=== PATIENT | female | born 1965 | race Caucasian/White ===

== ENCOUNTER 2016-11-07 16:27 | Emergency (ER) | payer BC ==
[2016-11-07] MEDS ORDERED: KETOROLAC TROMETHAMINE 30 MG/1 ML VIAL IVPUSH ONE (16:32)
[2016-11-07] MEDS ORDERED: KETOROLAC TROMETHAMINE 30 MG/1 ML VIAL ONE (16:35)
--- NOTE | 2016-11-07 16:36 | PDOC ---
History of Present Illness - General History Source: Patient Exam Limitations: No Limitations - History of Present Illness Initial Comments: 11/07/16 16:39 The patient is a 50 year old female with no significant past medical history who presents to the ED complaining of left ankle pain that began today. She reports she slipped straight down 1 stair step onto concrete [place] when she heard a pop at the onset of her pain. She states she was initially able to bear weight on her right lower extremity although it was painful. This afternoon, her pain became significantly worse, prompting her to come to the ED for evaluation. She states her pain is felt worst laterally, and she is unable to bear weight secondary to her pain. She also complains of nausea secondary to her pain. The patient denies any numbness or tingling in the left lower extremity. She denies any left lower extremity numbness or tingling. No other injury. <Yahaira Du - Last Filed: 11/07/16 17:03> <Poli Will - Last Filed: 11/07/16 18:08> - General Chief Complaint: Pain, Acute Stated Complaint: LEFT ANKLE PAIN Time Seen by Provider: 11/07/16 16:28 Past History <Yahaira Du - Last Filed: 11/07/16 17:03> - Past Medical History Anemia: No Asthma: No Cancer: No Cardiac Disorders: No CVA: No COPD: No CHF: No Dementia: No Diabetes: No GI Disorders: No Disorders: No HTN: No Hypercholesterolemia: No Liver Disease: No Seizures: No Thyroid Disease: No - Surgical History Abdominal Surgery: No Appendectomy: Yes Cardiac Surgery: No Cholecystectomy: No Lung Surgery: No Neurologic Surgery: No Orthopedic Surgery: No - Psycho/Social/Smoking Cessation Hx Anxiety: Yes Suicidal Ideation: No Smoking Status: No Smoking History: Never smoked Number of Cigarettes Smoked Daily: 0 Hx Alcohol Use: No Drug/Substance Use Hx: No Substance Use Type: None Hx Substance Use Treatment: No <Poli Will - Last Filed: 11/07/16 18:08> - Past Medical History Allergies/Adverse Reactions: Allergies Allergy/AdvReac Type Severity Reaction Status Date / Time latex Allergy Rash Verified 11/07/16 16:28 ondansetron HCl [From Zofran] Allergy unable to Verified 11/07/16 16:28 void Penicillins Allergy Verified 11/07/16 16:28 Home Medications: Ambulatory Orders Fluoxetine HCl [Prozac -] 60 mg PO DAILY 05/01/13 Naproxen [EC-Naprosyn] 375 mg PO BID PRN #14 tablet.ec 11/07/16 Review of Systems - Review of Systems Able to Perform ROS?: Yes Comments:: 11/07/16 16:39 CONSTITUTIONAL: Absent: Fever, Chills, Diaphoresis, Generalized Weakness, Malaise, Loss of Appetite HEENT: Absent: Rhinorrhea, Nasal Congestion, Throat Pain, Throat Swelling, Difficulty Swallowing, Mouth Swelling, Ear Pain, Eye Pain, Visual Changes CARDIOVASCULAR: Absent: Chest Pain, Syncope, Palpitations, Irregular Heart Rate, Lightheadedness , Peripheral Edema RESPIRATORY: Absent: Cough, Shortness of Breath, SOB with Exertion, Orthopnea, Wheezing, Stridor, Hemoptysis GASTROINTESTINAL: Absent: Abdominal pain, Abdominal Distension, Nausea, Vomiting, Diarrhea, Constipation, Melena, Hematochezia GENITOURINARY: Absent: Dysuria, Frequency, Urgency, Hesitancy, Flank Pain, Genital Pain MUSCULOSKELETAL: Present: L ankle pain Absent: Myalgia, Back pain, Neck Pain SKIN: Absent: Rash, Itching, PalloR HEMEATOLOGIC/IMMUNOLOGIC: Absent: Easy Bleeding, Easy Bruising, Lymphadenopathy, Frequent infections ENDOCRINE: Absent: Unexplained Weight Gain, Unexplained Weight Loss, Heat Intolerance, Cold Intolerance NEUROLOGIC: Absent: Headache, Focal Weakness, Paresthesias, Vertigo, Lightheadedness, Unsteady Gait, Seizure, Mental Status Changes, Incontinence PSYCHIATRIC: Absent: Anxiety, Depression <Yahaira Du - Last Filed: 11/07/16 17:03> *Physical Exam - Vital Signs Last Vital Signs Temp Pulse Resp BP Pulse Ox 97.9 F 62 18 119/67 100 11/07/16 16:28 11/07/16 16:28 11/07/16 16:28 11/07/16 16:28 11/07/16 16:28 - Physical Exam Comments: 11/07/16 16:40 GENERAL: The patient is awake, alert, and fully oriented, uncomfortable appearing. HEAD: Normal with no signs of trauma. EYES: Pupils equal, round and reactive to light, extraocular movements intact, sclera anicteric, conjunctiva clear. EXTREMITIES: Left lower extremity: All other extremities: No tenderness to palpation of the medial malleolus. Significant swelling and tenderness to the lateral malleolus. The foot is nontender. Sensation intact, DP intact, CR <2s. All other extremities: Normal range of motion, no edema. No clubbing or cyanosis. No cords, erythema, or tenderness. NEUROLOGICAL: Normal speech, gait deferred. PSYCH: Normal mood, normal affect. SKIN: Warm, Dry, normal turgor, no rashes or lesions noted. <Yahaira Du - Last Filed: 11/07/16 17:03> - Vital Signs Last Vital Signs Temp Pulse Resp BP Pulse Ox 97.9 F 62 18 119/67 100 11/07/16 16:28 11/07/16 16:28 11/07/16 16:28 11/07/16 16:28 11/07/16 16:28 <Poli Will - Last Filed: 11/07/16 18:08> ED Treatment Course - RADIOLOGY Radiology Studies Ordered: Category Date Time Status ANKLE-LEFT [RAD] Stat Radiology 11/07/16 16:32 Ordered <Poli Will - Last Filed: 11/07/16 18:08> Medical Decision Making - Medical Decision Making 11/07/16 18:01 Patient presents with an ankle injury today. On examination there is tenderness to the lateral malleolus with localized swelling over the distal fibula. Skin is intact. Neurovascular is intact. 3 views of the left ankle were performed. On my preliminary review there is a distal fibular avulsion fracture. There is localized soft tissue swelling. The mortise is normal. Impression: Avulsion fracture of the distal fibula, left ankle. Librado wrap applied Velcro ankle stirrup brace applied Crutches with instructions Patient states the pain is much better after IV Toradol. <Poli Will - Last Filed: 11/07/16 18:08> *DC/Admit/Observation/Transfer - Attestations Scribe Attestion: 11/07/16 16:44 Documentation prepared by Yahaira Du, acting as medical aide for Poli Will MD. <Yahaira Du - Last Filed: 11/07/16 17:03> - Discharge Dispostion Admit: No <Poli Will - Last Filed: 11/07/16 18:08> Diagnosis at time of Disposition: Fracture of distal fibula Qualifiers: Encounter type: initial encounter Fracture type: closed Fracture morphology: unspecified fracture morphology Laterality: left Qualified Code(s): S82.832A - Other fracture of upper and lower end of left fibula, initial encounter for closed fracture - Discharge Dispostion Disposition: HOME Condition at time of disposition: Stable - Prescriptions Prescriptions: Naproxen [EC-Naprosyn] 375 mg PO BID PRN #14 tablet.ec PRN Reason: Pain - Referrals Referrals: Flavio Wilson MD [Staff Physician] - 7 days - Patient Instructions Printed Discharge Instructions: DI for Ankle Fracture Additional Instructions: You were evaluated today for a left ankle injury. The x-ray shows a fracture of the tip of the fibula bone. This should heal well with just time and rest. It is advised that you elevate the ankle to reduce the swelling. Use the Librado bandage for compression while up, and remove it at nighttime. Use the Velcro brace to help you when you are up as well. You may do partial weightbearing on the ankle with the assistance of crutches as needed. As the pain improves, you can put more weight on the ankle. Take Naprosyn twice a day as needed for pain. Follow-up with Dr. Wilson, your orthopedic surgeon in one week if the symptoms are not resolving.
[2016-11-07 16:39] VITALS: BP 119/67; PULSE 62; TEMP 97.9; BMI 28.7
== END 2016-11-07 18:12 | disposition home or self-care (01) ==
LOC: FER 16:27
PROC: 3E0333Z Introduction of Anti-inflammatory into Peripheral Vein, Percutaneous Approach (ICD-10-PCS; principal; 2016-11-07)
PROC: 2W3TX1Z Immobilization of Left Foot using Splint (ICD-10-PCS; 2016-11-07)
DX: S82.832A Other fracture of upper and lower end of left fibula, initial encounter for closed fracture (principal); W10.9XXA Fall (on) (from) unspecified stairs and steps, initial encounter; Y93.9 Activity, unspecified; Y92.9 Unspecified place or not applicable
CPT/HCPCS: 73610-TC-LT; 99282-25